=== PATIENT | female | born 1970 | race Caucasian/White ===

== ENCOUNTER 2018-12-15 11:42 | Day surgery (SDC) | payer OTHER | END 2018-12-15 14:15 | disposition home or self-care (01) | LOC: FASU 11:42 ==

== ENCOUNTER 2020-11-10 18:47 | Emergency (ER) | payer OTHER ==
[2020-11-10 18:57] VITALS: BP 128/69; PULSE 80; TEMP 99.1; BMI 20.9
[2020-11-10 19:14] LABS: EPITHELIAL CELLS FEW /hpf
[2020-11-10] MEDS ORDERED: PHENAZOPYRIDINE HCL 100 MG TABLET (FP) PO ONE (19:36)
[2020-11-10] MEDS ORDERED: PHENAZOPYRIDINE HCL 100 MG TABLET (FP) ONE (19:37)
[2020-11-10] MEDS ORDERED: NITROFURANTOIN MACROCRYSTAL 50 MG CAPSULE (FP) ONE (19:37)
[2020-11-10] MEDS ORDERED: NITROFURANTOIN MACROCRYSTAL 50 MG CAPSULE (FP) PO SCH (19:45)
== END 2020-11-10 19:49 | disposition home or self-care (01) ==
LOC: FER 18:47
DX: N30.90 Cystitis, unspecified without hematuria (principal)
CPT/HCPCS: 81003; 81015; 84703; 87086; 87186; 99284-25

== ENCOUNTER 2023-12-25 19:49 | Emergency (ER) | payer OTHER ==
[2023-12-25 20:02] VITALS: BMI 21.4
[2023-12-25 20:08] VITALS: BP 133/72; PULSE 64; RESP 16; TEMP 97.7
[2023-12-25] MEDS ORDERED: IBUPROFEN 400 MG TABLET (FP) PO ONE (20:57)
[2023-12-25] MEDS: IBUPROFEN 400 MG TABLET (FP) PO ONE (20:58)
== END 2023-12-25 21:04 | disposition home or self-care (01) ==
LOC: FER 19:49
DX: S83.512A Sprain of anterior cruciate ligament of left knee, initial encounter (principal); X58.XXXA Exposure to other specified factors, initial encounter
CPT/HCPCS: 73562-TC-LT-FY; 99283-25